=== PATIENT | male | born 1945 | race American Indian/Alaskan Native ===

== ENCOUNTER → 2017-01-04 | Outpatient (CLI) | payer OTHER ==
[~2017-01-04] VITALS: Ht 185.4 cm; Wt 127.0 kg
[~2017-01-04] MED LIST: ASPIRIN E.C. 8181 MG PO; GLUCOPHAGE850 MG/TAB PO; GLUCOTROL 5M5 MG/TAB PO; LASIX 40MG TABL40 MG PO; REGLAN 10MG10 MG/TAB PO; REVLIMID10 MG PO; TOPROL XL 50MG50 MG PO; XARELTO20 MG PO; ZOCOR 40MG40 MG PO
[2017-01-04 08:18] VITALS: BP 129/80; BP 135/84; PULSE 71
[2017-01-04 09:53] VITALS: BP 160/72; PULSE 102
[2017-01-04 09:54] VITALS: PULSE 96
[2017-01-04 09:55] VITALS: BP 158/70; PULSE 84
[2017-01-04 09:57] VITALS: BP 160/80; PULSE 86
== END ==
LOC: COL.CARD 12-29 09:15
DX: R07.9 Chest pain, unspecified (principal)
CPT/HCPCS: A9502; J2785